=== PATIENT | male | born 1990 | race African-American/Black ===

== ENCOUNTER 2018-10-12 20:10 | Emergency (ER) | payer OTHER ==
[~2018-10-12] VITALS: Ht 193 cm; Wt 106.6 kg
[2018-10-12] MEDS ORDERED: ZANAFLEX4 MG PO (21:53)
[2018-10-12 22:07] VITALS: BP 142/76
== END 2018-10-12 22:08 | disposition home or self-care (01) ==
LOC: ER 20:10
DX: S30.0XXA Contusion of lower back and pelvis, initial encounter (principal); M54.12 Radiculopathy, cervical region; V89.2XXA Person injured in unspecified motor-vehicle accident, traffic, initial encounter; Y92.89 Other specified places as the place of occurrence of the external cause; Y93.89 Activity, other specified; Y99.8 Other external cause status